=== PATIENT | female | born 1965 | race Caucasian/White ===

== ENCOUNTER 2017-01-14 05:33 | Emergency (ER) ==
[2017-01-14 05:40] VITALS: BP 131/79; TEMP 97.6; BMI 44.9
--- NOTE | 2017-01-14 05:57 | ED.PDOC ---
General ED Provider: Dr. THOMAS ENG Chief Complaint: Palpitations Stated Complaint: Palpitation, woke me up. no chest tightness. no fever or chills. Time Seen by Physician: 05:55 Mode of Arrival: Walk-In Information Source: Patient Primary Care Provider: STANLEY SHERWOOD Nursing and Triage Documentation Reviewed and Agree: Yes Cardiovascular Complaint Exam - Palpitations Complaint/Exam Symptoms Are: Resolved Timing: Intermittent Initial Severity: Moderate Current Severity: None Character: Reports: Fast, Pounding Aggravating: Reports: None Alleviating: Reports: Rest Associated Signs and Symptoms: Denies: Lightheadedness, Dizziness, Syncope, Chest pain, Shortness of breath, Diaphoresis, Nausea, Vomiting Related Surgical History: Reports: None Cardiac Risk Factors: Reports: Hypertension, Elevated lipids Pulmonary Embolism Risk Factors: Reports: None Atrial Fibrillation Risk Factors: Reports: Hypertension, Hypothyroidism Thyroid Exam: Normal Differential Diagnoses: Medication induced, Panic Disorder Quality Indicators for AMI: EKG in 10min. Review of Systems - Review Of Systems Constitutional: Reports: No symptoms Eyes: Reports: No symptoms Ears, Nose, Mouth, Throat: Reports: Nose discharge Respiratory: Reports: No symptoms Cardiac: Reports: Palpitations GI: Reports: No symptoms : Reports: No symptoms Musculoskeletal: Reports: No symptoms Skin: Reports: No symptoms Neurological: Reports: No symptoms Endocrine: Reports: No symptoms Hematologic/Lymphatic: Reports: No symptoms All Other Systems: Reviewed and Negative Past Medical History - Past Medical History Previously Healthy: No Endocrine: Reports: DM 2, Hypothyroid (Thyeoidectomy), Other (thyroid nodule) Cardiovascular: Reports: None Respiratory: Reports: None Hematological: Reports: None Gastrointestinal: Reports: GERD, Crohn's, Other ( COLITIS) Genitourinary: Reports: None Neuro/Psych: Reports: Anxiety, Depression, Bipolar Disorder Musculoskeletal: Reports: None, Back Pain Cancer: Reports: None Last Menstrual Period: hysterectomy Other Pertinent Past Medical History: COLITIS/ crohn's, HERNIA. BACK PAIN - Surgical History General Surgical History: Reports: Hysterectomy, Cholecystectomy, Orthopedic, Back Surgery (SPINAL CYST REMOVAL), Other. Denies: Hernia Repair - Family History Family History: Reports: Unknown - Social History Smoking Status: Never smoker Hx Substance Use: No Alcohol Screening: None - Immunizations Tetanus Shot up to Date: Yes Physical Exam - Physical Exam Appearance: Well-appearing, No pain distress, Well-nourished, Obese Eyes: IBRAHIMA, EOMI, Conjunctiva clear ENT: Ears normal, Nose normal, Oropharynx normal Respiratory: Airway patent, Breath sounds clear, Breath sounds equal, Respirations nonlabored Cardiovascular: RRR, Pulses normal, No rub, No murmur GI/: Soft, Nontender, No masses, Bowel sounds normal, No Organomegaly Musculoskeletal: Normal strength, ROM intact, No edema, No calf tenderness Skin: Warm, Dry, Normal color Neurological: Sensation intact, Motor intact, Reflexes intact, Cranial nerves intact, Alert, Oriented Psychiatric: Affect appropriate, Mood appropriate Critical Care Note - Critical Care Note Total Time (mins): 0 Course - Course Orders, Labs, Meds: Orders Category Date Time Status EKG-(ED ONLY) Stat CARDIO 01/14/17 05:54 Ordered CBC W/ AUTO DIFF Stat LAB 01/14/17 05:54 Ordered COMPREHENSIVE METABOLIC PANEL Stat LAB 01/14/17 05:54 Ordered CREATINE KINASE Stat LAB 01/14/17 05:54 Ordered TROPONIN I Stat LAB 01/14/17 05:54 Ordered TSH [THYROID STIMULATING HORMONE] Stat LAB 01/14/17 05:54 Ordered Vital Signs: Temp Pulse Resp BP Pulse Ox 01/14/17 05:34 97.6 F 69 24 131/79 96 DAVID Risk Score DAVID Risk Score: Risk Score Odds of by 30D 0 0.1 (0.1-0.2) 1 0.3 (0.2-0.3) 2 0.4 (0.3-0.5) 3 0.7 (0.6-0.9) 4 1.2 (1.0-1.5) 5 2.2 (1.9-2.6) 6 3.0 (2.5-3.6) 7 4.8 (3.8-6.1) Departure - Departure Time of Disposition: 06:40 Disposition: HOME SELF-CARE Discharge Problem: Palpitations Instructions: Palpitations (ED) Condition: Stable Pt referred to PMD for follow-up: Yes Additional Instructions: Needs f/u with [facility] FOR FURTHER EVALUATION AND [facility]OLTER Allergies/Adverse Reactions: Allergies levofloxacin [From Levaquin] Adverse Reaction (Verified 12/25/15 15:36) Penicillins Adverse Reaction (Verified 12/25/15 15:36) Home Medications: Ambulatory Orders Potassium Chloride 20 meq PO DIRECTED PRN 08/07/13 Omeprazole [Prilosec] 20 mg PO QDAC 11/20/15 Zolpidem Tartrate [Ambien] 5 mg PO bedtinme 04/19/16 Hydrocodone/Acetaminophen [Arnett 7.5-325 Tablet] 1 each PO TID 05/17/16 Orphenadrine Citrate [Norflex] 100 mg PO Q12H PRN #20 tablet.er 07/17/16 Disposition Discussed With: Patient
[2017-01-14 06:12] LABS: BASOPHILS % (AUTO) 0.5 % (0.0-3.0); EOSINOPHILS # (AUTO) 0.2 K/ul (0.0-0.7); EOSINOPHILS % (AUTO) 2.6 % (0.0-7.0); HEMATOCRIT 38.2 % (37.0-47.0); HEMOGLOBIN 12.6 g/dl (12.0-16.0); IMMATURE GRANULOCYTE % (AUTO) 0.3 % (0.0-5.0); LYMPHOCYTES # (AUTO) 1.1 K/uL (0.60-3.4); LYMPHOCYTES % (AUTO) 15.3 (10.0-50.0); MEAN CORPUSCULAR HEMOGLOBIN 26.8 pg (27.0-31.0); MEAN CORPUSCULAR VOLUME 81.3 fl (81.0-99.0); MONOCYTES # (AUTO) 0.8 K/uL (0.4-2.0); MONOCYTES % (AUTO) 10.5 (0-10); NEUTROPHILS # (AUTO) 5.2 K/ul (2.0-6.9); NEUTROPHILS % (AUTO) 70.8; PLATELET COUNT 193 10^3/uL (140-440); WHITE BLOOD COUNT 7.34 K/ul (4.6-10.2)
[2017-01-14 07:03] LABS: ALANINE AMINOTRANSFERASE 24 U/L (12-78); ALBUMIN 3.5 g/dL (3.4-5.0); ALKALINE PHOSPHATASE 80 U/L (42-98); ANION GAP 13.7; ASPARTATE AMINO TRANSFERASE 22 U/L (15-37); BILIRUBIN,TOTAL 0.59 mg/dL (0.00-1.20); BLOOD UREA NITROGEN 10 mg/dL (7-18); CALCIUM 8.5 mg/dL (8.2-10.2); CARBON DIOXIDE 25 mmol/L (21-32); CHLORIDE 106 mmol/L (98-107); CREATINE KINASE 278 U/L; GLUCOSE 110 mg/dL (70-110); POTASSIUM 3.7 mmol/L (3.5-5.10); SODIUM 141 mmol/L (136-145)
[2017-01-14 07:11] LABS: CREATINE KINASE MB 6.2 ng/ml (0.0-3.6)
== END 2017-01-14 07:55 | disposition home or self-care (01) ==
LOC: ED 05:33
DX: R00.2 Palpitations (principal); I10 Essential (primary) hypertension; E78.5 Hyperlipidemia, unspecified; E03.9 Hypothyroidism, unspecified; E11.9 Type 2 diabetes mellitus without complications; Z79.899 Other long term (current) drug therapy
CPT/HCPCS: 36415; 80053; 82550; 82553; 84439; 84443; 84484; 85025; 93005; 93010; 99283

== ENCOUNTER 2017-02-20 11:53 | Outpatient (CLI) | payer OTHER | END 2017-02-20 11:54 | disposition home or self-care (01) | LOC: LAB 11:53 | PROVIDERS: ATTEND Nurse Practitioner Family | DX: L05.01 Pilonidal cyst with abscess (principal) | CPT/HCPCS: 87070; 87186 ==

== ENCOUNTER 2017-07-01 14:17 | Outpatient (CLI) ==
[2017-07-01 14:44] LABS: BASOPHILS # (AUTO) 0.1 K/uL (0-0.2); BASOPHILS % (AUTO) 0.7 % (0.0-3.0); EOSINOPHILS # (AUTO) 0.3 K/ul (0.0-0.7); EOSINOPHILS % (AUTO) 3.3 % (0.0-7.0); HEMATOCRIT 38.5 % (37.0-47.0); HEMOGLOBIN 12.9 g/dl (12.0-16.0); IMMATURE GRANULOCYTE % (AUTO) 0.2 % (0.0-5.0); LYMPHOCYTES % (AUTO) 19.4 (10.0-50.0); MEAN CORPUSCULAR HEMOGLOBIN 27.1 pg (27.0-31.0); MEAN CORPUSCULAR HGB CONC 33.5 (31.8-35.4); MEAN CORPUSCULAR VOLUME 80.9 fl (81.0-99.0); MONOCYTES # (AUTO) 0.6 K/uL (0.4-2.0); MONOCYTES % (AUTO) 6.3 (0-10); NEUTROPHILS # (AUTO) 7.1 K/ul (2.0-6.9); NEUTROPHILS % (AUTO) 70.1; PLATELET COUNT 228 10^3/uL (140-440); RED BLOOD COUNT 4.76 10^6/ul (4.20-5.40); WHITE BLOOD COUNT 10.09 K/ul (4.6-10.2)
[2017-07-01 15:25] LABS: ALBUMIN 3.7 g/dL (3.4-5.0); ALBUMIN/GLOBULIN RATIO 0.97; ANION GAP 12.9; BILIRUBIN,TOTAL 0.53 mg/dL (0.00-1.20); BUN/CREATININE RATIO 14.89; CREATININE 0.94 mg/dL (0.60-1.30); POTASSIUM 3.9 mmol/L (3.5-5.10); TOTAL PROTEIN 7.5 g/dL (6.4-8.2)
== END 2017-07-01 14:18 | disposition home or self-care (01) ==
LOC: LAB 14:17
PROVIDERS: ATTEND Nurse Practitioner Family
DX: E11.9 Type 2 diabetes mellitus without complications (principal); E66.9 Obesity, unspecified
CPT/HCPCS: 36415; 80053; 83036; 84439; 84443; 85025; 93005; 93010

== ENCOUNTER 2017-07-21 16:29 | Outpatient (CLI) | END 2017-07-21 16:30 | disposition home or self-care (01) | LOC: LAB 16:29 | PROVIDERS: ATTEND Nurse Practitioner Family | DX: L05.91 Pilonidal cyst without abscess (principal) | CPT/HCPCS: 87070 ==

== ENCOUNTER 2017-08-13 13:14 | Outpatient (CLI) | END 2017-08-13 13:15 | disposition home or self-care (01) | LOC: LAB 13:14 | PROVIDERS: ATTEND Nurse Practitioner Family | DX: E03.9 Hypothyroidism, unspecified (principal) | CPT/HCPCS: 36415; 84439; 84443 ==

== ENCOUNTER 2017-08-28 12:16 | Outpatient (CLI) ==
[2017-08-28 13:55] VITALS: BMI 48.1
== END 2017-08-28 12:17 | disposition home or self-care (01) ==
LOC: DIETCN 12:16
PROVIDERS: ATTEND Nurse Practitioner Family
DX: E66.9 Obesity, unspecified (principal)
CPT/HCPCS: 97802

== ENCOUNTER 2017-11-21 15:17 | Outpatient (CLI) ==
--- NOTE | 2017-11-21 15:40 | DI ---
Exam: Three x-rays of the left foot. Comparison: None available. Reason for exam: Pain in left foot. FINDINGS: No acute fracture or malalignment. The joint spaces are relatively well maintained. Dege nerative changes are seen in the midfoot and phalanges. No unexplained calcific soft tissue densitie s or radiopaque retained foreign bodies. Enthesiophytes are seen in the calcaneus. Impression: 1. No obvious fracture or malalignment in the left foot. 2. Moderate degenerative disease with enthesiophyte formation and joint space narrowing.
== END 2017-11-21 15:18 | disposition home or self-care (01) ==
LOC: RAD 15:17
PROVIDERS: ATTEND Nurse Practitioner Family
DX: M79.672 Pain in left foot (principal); S90.812A Abrasion, left foot, initial encounter; E03.9 Hypothyroidism, unspecified; E66.9 Obesity, unspecified; E75.6 Lipid storage disorder, unspecified
CPT/HCPCS: 36415; 80053; 80061; 84439; 84443; 85025

== ENCOUNTER 2018-01-26 17:01 | Outpatient (CLI) | END 2018-01-26 17:02 | disposition home or self-care (01) | LOC: FCC-LAB 17:01 | PROVIDERS: ATTEND Nurse Practitioner Family | DX: E03.9 Hypothyroidism, unspecified (principal); E66.9 Obesity, unspecified; G47.30 Sleep apnea, unspecified; R06.02 Shortness of breath; E75.6 Lipid storage disorder, unspecified | CPT/HCPCS: 36415; 80053; 80061; 84439; 84443; 85025 ==

== ENCOUNTER 2018-02-20 09:19 | Outpatient (CLI) ==
--- NOTE | 2018-02-20 13:18 | CT ---
EXAM: CT of the soft tissue neck with and without contrast History: Short of breath and choking left-sided neck swelling. Comparison: CT soft tissue neck 11/12/2015 Technique: Multiplanar CT images through the soft tissue neck were obtained with and without the adm inistration of IV contrast Findings: Orbits are intact. The visualized intracranial contents demonstrate no acute findings. N o parotid inflammation and no suspicious parotid masses. Submandibular glands are not inflamed. No pathologic lymphadenopathy. No peritonsillar inflammation. Epiglottis is not thickened. Status po st thyroidectomy. No abscess. Mildly enlarged left submandibular lymph nodes slightly increased in size compared to the prior study with the largest measuring 1.2 cm. These likely correlates to the p alpable event. The visualized upper lungs are free of consolidation. No acute osseous abnormalities. No air-fluid levels are seen within the sinuses or mastoid air cells. Postsurgical changes of the cervical spine. Impression: 1. Mildly enlarged left submandibular lymph nodes slightly increased in size compared to the prior s tudy and correlate with the palpable area. These are most likely reactive or inflammatory etiology.
== END 2018-02-20 09:20 | disposition home or self-care (01) ==
LOC: RAD 09:19
PROVIDERS: ATTEND Nurse Practitioner Family
DX: R22.9 Localized swelling, mass and lump, unspecified (principal); R59.0 Localized enlarged lymph nodes

== ENCOUNTER 2018-02-23 14:58 | Outpatient (CLI) | END 2018-02-23 14:59 | disposition home or self-care (01) | LOC: CAR 14:58 | PROVIDERS: ATTEND Nurse Practitioner Family | DX: G47.30 Sleep apnea, unspecified (principal); E66.9 Obesity, unspecified ==

== ENCOUNTER 2018-06-12 11:15 | Outpatient (CLI) | END 2018-06-12 11:16 | disposition home or self-care (01) | LOC: FCC-LAB 11:15 | PROVIDERS: ATTEND Family Medicine | DX: E03.9 Hypothyroidism, unspecified (principal); E16.2 Hypoglycemia, unspecified; E11.9 Type 2 diabetes mellitus without complications; E55.9 Vitamin D deficiency, unspecified | CPT/HCPCS: 36415; 80053; 82043; 82306; 83036; 84443 ==

== ENCOUNTER 2022-01-25 22:35 | Inpatient (IN) ==
[2022-01-26] MEDS ORDERED: ZOFRAN ODT PO STA (00:08)
[2022-01-26] MEDS ORDERED: CITRATE OF MAGNESIA PO STA (00:08)
--- NOTE | 2022-01-26 01:01 | CT ---
EXAM: CT scan abdomen pelvis without contrast HISTORY: Right-sided pain COMPARISON: CT scan abdomen pelvis 11/21/2016 FINDINGS: Helically acquired axial images obtained through the abdomen pelvis without contrast utili zing 3-mm collimation. Sagittal and coronal reconstructions were imaged and reviewed.. The visualize d lung bases are clear. There has been prior cholecystectomy. Diffuse fatty infiltration is noted t hroughout the liver.. Atherosclerotic changes seen involving the aorta without aneurysm formation. T he kidneys are morphologically normal. There is a metallic foreign body seen within the third portio n of the duodenum with streak artifact. Inflammatory changes are seen about the inferior pancreatic head and uncinate process suggesting pancreatitis. There is normal appendix. There is diverticulosi s without diverticulitis.. There is a normal uterus. Bone windows reveals no evidence of lytic or bl astic lesions. IMPRESSION: Fatty liver. Prior cholecystectomy. Findings compatible pancreatitis. Diverticulosis without diverticulitis. Normal appendix All CT scans are performed using dose optimization techniques as appropriate to the performed exam an d include at least one of the following: Automated exposure control, adjustment of the mA and/or kV according t o size, and the use of iterative reconstruction technique.
[2022-01-26] MEDS ORDERED: LACTATED RINGERS 1,000 ML IV STA (01:29)
[2022-01-26] MEDS ORDERED: MORPHINE 4 MG/ML SYRINGE IVP ONE (01:29)
[2022-01-26] MEDS ORDERED: ZOFRAN 4 MG/2 ML IVP ONE (01:29)
[2022-01-26 02:01] LABS: BORDETELLA PARAPERTUSSIS (PCR) NOT DETECTED (NOT DETECT); BORDETELLA PERTUSSIS (PCR) NOT DETECTED (NOT DETECT); CHLAMYDIA PNEUMONIAE (PCR) NOT DETECTED (NOT DETECT); CORONAVIRUS 229E (PCR) NOT DETECTED (NOT DETECT); CORONAVIRUS HKU1 (PCR) NOT DETECTED (NOT DETECT); CORONAVIRUS NL63 (PCR) NOT DETECTED (NOT DETECT); CORONAVIRUS OC43 (PCR) NOT DETECTED (NOT DETECT); HUMAN METAPNEUMOVIRUS (PCR) NOT DETECTED (NOT DETECT); HUMAN RHINOVIRUS/ENTEROV (PCR) NOT DETECTED (NOT DETECT); INFLUENZA B (PCR) NOT DETECTED (NOT DETECT); MYCOPLASMA PNEUMONIAE (PCR) NOT DETECTED (NOT DETECT); PARAINFLUENZA VIRUS 1 (PCR) NOT DETECTED (NOT DETECT); PARAINFLUENZA VIRUS 2 (PCR) NOT DETECTED (NOT DETECT); PARAINFLUENZA VIRUS 3 (PCR) NOT DETECTED (NOT DETECT); PARAINFLUENZA VIRUS 4 (PCR) NOT DETECTED (NOT DETECT); RESPIRATORY SYNCYTIAL V (PCR) NOT DETECTED (NOT DETECT); SARS_COV_2 (PCR) NOT DETECTED (NOT DETECT)
[2022-01-26 02:54] LABS: ADENOVIRUS (PCR) NOT DETECTED (NOT DETECT)
[2022-01-26] MEDS ORDERED: DEXTROSE 50%-WATER ABBOJECT IVP PRN (03:22)
[2022-01-26] MEDS ORDERED: ZOFRAN 4 MG/2 ML IVP PRN (03:22)
[2022-01-26] MEDS ORDERED: MORPHINE 4 MG/ML SYRINGE IVP PRN ×2 (03:22→07:45)
--- NOTE | 2022-01-26 03:33 | ED.PDOC ---
General ED Provider: Dr. BRY PICKENS Chief Complaint: Abdominal Pain Stated Complaint: 2 day hx of upper abdominal pain with some nausea. Saw Dr. Praful ESPARZA and had some labs and a KUB earlier today. Pain became worse and came to ED. Prior cholecystectomy, no hx of PUD or pancreatitis. ? Hx of Crohn's. Type 2 DM on insulin, BS OK. Time Seen by Provider: 01/25/22 23:30 Mode of Arrival: Walk-In Information Source: Patient Exam Limitations: No limitations Primary Care Provider: PEYTON ARNOLD MD Nursing and Triage Documentation Reviewed and Agree: Yes Does patient meet sepsis criteria?: No System Inflammatory Response Syndrome: Not Applicable Sepsis Protocol: For patient's 13 years and over: Temp is 96.8 and below OR 101 and greater Pulse >90 BPM Resp >20/minute Acutely Altered Mental Status Are patient's symptoms suggestive of a new infection, such as: -Pneumonia -Skin, Soft Tissue -Endocarditis -UTI -Bone, Joint Infection -Implantable Device -Acute Abdominal Infection -Wound Infection -Meningitis -Blood Stream Catheter Infection -Unknown GI Complaint Exam Abdominal Pain Complaint/Exam Onset: Gradual Duration: 2 d Symptoms Are: Still present Timing: Constant Initial Severity: Moderate Current Severity: Moderate Location of Pain: Epigastric Character: Reports Dull and Aching Aggravating: Reports Food Alleviating: Reports None Associated Signs and Symptoms: Denies Diaphoresis, Fever, Cough, Chest pain, D izziness, Back pain, Constipation, Blood in stool, Dysuria, Urinary frequency, Decreased urine output, Decreased appetite, Vaginal bleeding, Vaginal discharge, Nausea, Vomiting, Diarrhea, Sore throat or Decreased activity AAA Risk Factors: Reports Hypertension Cardiac Risk Factors: Reports Hypertension Ectopic Risk Factors: Reports None Ovarian Torsion Risk Factors: Reports None Surgical Obstruction Risk Factors: Reports None Related Surgical History: Reports None Abdominal Findings: Present Other (TTP upper abdomen) Review of Systems Review Of Systems Constitutional: Reports No symptoms Eyes: Reports No symptoms Ears, Nose, Mouth, Throat: Reports No symptoms Respiratory: Reports No symptoms Cardiac: Reports No symptoms GI: Reports Abdominal pain, Poor appetite and Poor fluid intake : Reports No symptoms Musculoskeletal: Reports No symptoms Skin: Reports No symptoms Neurological: Reports No symptoms Endocrine: Reports No symptoms Hematologic/Lymphatic: Reports No symptoms All Other Systems: Reviewed and Negative [facility] Medical History Anxiety Chronic arthritis Crohns disease Depression Gastroesophageal reflux disease Hx of degenerative disc disease Hypertension Kidney problem Non-insulin dependent type 2 diabetes mellitus Paranoia Schizo-affective schizophrenia Thyroid dysfunction Family History Mother Cardiac disease Other Schizophrenia Social History Smoking and tobacco status: Never smoker Alcohol intake: never Substance use type: does not use Special smitha needs: No Agree to transfusion: Yes Adopted: No Caregiver/support person: No Foster care: No Household members: caregiver Housing: other Marital status: S SINGLE Lives independently: No Daycare: no daycare Number of children: 1 Number of grandchildren: 0 Highest education level completed: high school graduate Financial difficulty paying for basics: not very hard service: No Current occupational status: disabled Current occupational exposures/hazards: No Pets and animals: No Leisure activites: games and reading History of recent travel: No Sexually active: No Do you think of yourself as: straight/heterosexual Current gender identity: female Seatbelt use: always Helmet use: No Drives intoxicated or rides with intoxicated city bus driver: No Water heater temperature set < 120 degrees: Yes Working smoke detector in home: Yes Fire extinguisher in home: Yes Carbon monoxide detector in home: No Firearms in home: No Surgical History Back surgery Cystectomy History of oophorectomy Status post cholecystectomy Status post hernia repair Status post hysterectomy Status post thyroidectomy (12/08/15) Female Reproductive History Menstrual Hx Hysterectomy: Yes Hx Tubal Ligation: No Physical Exam Physical Exam Appearance: Reports Ill-appearing and Obese Ill-appearing: Moderate Pain Distress: Moderate Eyes: Reports IBRAHIMA ENT: Reports Oropharynx normal Neck: Supple Respiratory: Reports Airway patent and Breath sounds clear Cardiovascular: Reports RRR and Pulses normal GI/: Reports Soft and Nontender Musculoskeletal: Reports Normal strength and ROM intact Skin: Reports Warm and Dry Neurological: Reports Sensation intact, Motor intact and Alert Psychiatric: Reports Affect appropriate and Mood appropriate Interpretation Radiology Interpretation Radiology Interpretation By: Radiologist Radiology Results: Positive Exam Interpreted: CT Scan Xray Comments: pancreatitis Critical Care Note Critical Care Note Total Critical Care Time (mins): 0 Course Course Hematology/Chemistry: 01/26/22 04:55 01/26/22 04:55 Orders, Labs, Meds: Lab Review 01/26/22 01:59 Adenovirus (PCR) Not detected B. pertussis DNA (PCR) Not detected B.parapertussis DNA PCR Not detected C. pneumoniae DNA (PCR) Not detected Coronavirus OC43 (PCR) Not detected Coronavirus HKU1 (PCR) Not detected Coronavirus 229E (PCR) Not detected Coronavirus NL63 (PCR) Not detected Human Metapneumovir PCR Not detected Influenza Type A (PCR) Not detected Influenza B (RT-PCR) Not detected M. pneumoniae (PCR) Not detected Parainfluenza 1 (PCR) Not detected Parainfluenza 2 (PCR) Not detected Parainfluenza 3 (PCR) Not detected Parainfluenza 4 (PCR) Not detected RSV (PCR) Not detected Entero/Rhino (PCR) Not detected SARS-CoV-2 (PCR) Not detected Orders Category Date Time Status ADMIT PATIENT INPATIENT .TO [facility] (NON-MONITORED ADMISSION 01/26/22 01:29 Active BED) Magnesium Citrate [Citrate of Magnesia] MEDS 01/26/22 00:08 Discontinued 10 oz PO ONCE STA Morphine Sulfate [Morphine 4 mg/ml Syringe] MEDS 01/26/22 01:29 Discontinued 4 mg IVP ONCE ONE Ondansetron HCl/Pf [Zofran 4 mg/2 ml] MEDS 01/26/22 01:29 Discontinued 4 mg IVP ONCE ONE Ondansetron [Zofran Odt] MEDS 01/26/22 00:08 Discontinued 4 mg PO ONCE STA Ringers Lactated Solution [Lactated Ringers] 1,000 ml MEDS 01/26/22 01:29 Active IV 125 mls/hr CT ABDOMEN/PELVIS WO CONTRAST Stat RADS 01/25/22 22:55 Completed Medications Generic Name Dose Route Start Last Admin Trade Name Freq PRN Reason Stop Dose Admin Dextrose 50 ml 01/26/22 03:22 Dextrose 50 % In Water 50 Ml Disp.Syrin IVP ONCE PRN Unconscious Hypoglycemia Protocol Duloxetine HCl 60 mg 01/26/22 09:00 Duloxetine Hcl 30 Mg Capsule.Dr PO DAILY [facility] Enoxaparin Sodium 40 mg 01/26/22 09:00 Enoxaparin Sodium 40 Mg/0.4 Ml Syr SUBCUT DAILY [facility] Gabapentin 6,000 mg 01/26/22 09:00 Gabapentin 300 Mg Capsule PO QID [facility] Gabapentin 200 mg 01/26/22 09:00 Gabapentin 100 Mg Capsule PO QID [facility] Lactated Ringer's 1,000 mls @ 125 mls/hr 01/26/22 01:29 01/26/22 01:47 Lactated Ringers IV 01/26/22 09:28 125 mls/hr .Q8H STA Administration Lactated Ringer's 1,000 mls @ 125 mls/hr 01/26/22 03:30 Lactated Ringers IV .Q8H [facility] Insulin Glargine 100 unit 01/26/22 09:00 Insulin Glargine,Hum.Rec.Anlog 100 Units/Ml SUBCUT QAM [facility] Insulin Glargine 40 unit 01/26/22 21:00 Insulin Glargine,Hum.Rec.Anlog 100 Units/Ml SUBCUT BEDTIME [facility] Insulin Human Regular 0 unit 01/26/22 05:27 01/26/22 06:09 Insulin Regular, Human 100 Unit/Ml (3ml) Vial SUBCUT 3 unit PRN PRN Administration Hyperglycemia Protocol Levothyroxine Sodium 100 mcg 01/26/22 06:30 01/26/22 05:55 Levothyroxine Sodium 100 Mcg Tablet PO 100 mcg 0630 ARAM Administration Levothyroxine Sodium 75 mcg 01/26/22 06:30 01/26/22 05:55 Levothyroxine Sodium 75 Mcg Tablet PO 75 mcg 0630 ARAM Administration Lisinopril 2.5 mg 01/26/22 09:00 Lisinopril 5 Mg Tablet PO DAILY [facility] Montelukast Sodium 10 mg 01/26/22 09:00 Montelukast Sodium 10 Mg Tablet PO DAILY [facility] Morphine Sulfate 4 mg 01/26/22 03:22 Morphine Sulfate 4 Mg/Ml Syringe IVP Q6H PRN Abdominal Pain Non-Formulary Medication 1 gm 01/26/22 09:00 Estradiol VAGINAL DAILY [facility] Ondansetron HCl 4 mg 01/26/22 03:22 01/26/22 04:36 Ondansetron Hcl/Pf 4 Mg/2 Ml Sdv IVP 4 mg Q6H PRN Administration Nausea / Vomiting Pantoprazole Sodium 40 mg 01/26/22 09:00 Pantoprazole Sodium 40 Mg Tablet.Dr PO DAILY [facility] Quetiapine Fumarate 400 mg 01/26/22 09:00 Quetiapine Fumarate 100 Mg Tablet PO DAILY [facility] Simvastatin 10 mg 01/26/22 09:00 Simvastatin 10 Mg Tablet PO DAILY [facility] Sitagliptin Phosphate 100 mg 01/26/22 09:00 Sitagliptin Phosphate 50 Mg Tablet PO DAILY [facility] Discontinued Medications Generic Name Dose Route Start Last Admin Trade Name Azeb PRN Reason Stop Dose Admin Magnesium Citrate 10 oz 01/26/22 00:08 01/26/22 00:13 Magnesium Citrate 10 Oz Tania PO 01/26/22 00:09 10 oz ONCE STA Administration Morphine Sulfate 4 mg 01/26/22 01:29 01/26/22 01:48 Morphine Sulfate 4 Mg/Ml Syringe IVP 01/26/22 01:30 4 mg ONCE ONE Administration Ondansetron HCl 4 mg 01/26/22 00:08 01/26/22 00:13 Ondansetron Hcl 4 Mg Tab.Rapdis PO 01/26/22 00:09 4 mg ONCE STA Administration Ondansetron HCl 4 mg 01/26/22 01:29 01/26/22 01:48 Ondansetron Hcl/Pf 4 Mg/2 Ml Sdv IVP 01/26/22 01:30 4 mg ONCE ONE Administration Vital Signs: Temp Pulse Resp BP Pulse Ox 01/25/22 22:36 97.7 F 101 H 20 133/72 97 Discharge Plan Discharge Patient Disposition: ADMITTED INPATIENT Discharge Problem: Pancreatitis ED Provider: BRY PICKENS Condition: Stable Physician Progress Note: [Dr. Arnold not admitting at this time. Labs are unremarkable, CT indicated pancreatitis. Admit her for pancreatitis tx, gut rest, IVF, med. ]
[2022-01-26 05:02] LABS: BASOPHILS # (AUTO) 0.1 K/uL (0-0.2); BASOPHILS % (AUTO) 0.7 % (0.0-3.0); EOSINOPHILS # (AUTO) 0.4 K/ul (0.0-0.7); EOSINOPHILS % (AUTO) 3.1 % (0.0-7.0); HEMATOCRIT 36.9 % (37.0-47.0); HEMOGLOBIN 11.9 g/dl (12.0-16.0); IMMATURE GRANULOCYTE # (AUTO) 0.1 (0.0-1.0); IMMATURE GRANULOCYTE % (AUTO) 0.6 % (0.0-5.0); LYMPHOCYTES # (AUTO) 2.5 K/uL (0.60-3.4); LYMPHOCYTES % (AUTO) 20.3 (10.0-50.0); MEAN CORPUSCULAR HEMOGLOBIN 27.5 pg (27.0-31.0); MEAN CORPUSCULAR HGB CONC 32.2 (31.8-35.4); MEAN CORPUSCULAR VOLUME 85.2 fl (81.0-99.0); MONOCYTES # (AUTO) 0.9 K/uL (0.4-2.0); MONOCYTES % (AUTO) 7.3 (0-10); NEUTROPHILS # (AUTO) 8.4 K/ul (2.0-6.9); PLATELET COUNT 246 10^3/uL (140-440); RDW COEFFICIENT OF VARIATION 13.3 % (11.6-14.8); RED BLOOD COUNT 4.33 10^6/ul (4.20-5.40)
[2022-01-26 05:14] LABS: AMYLASE 52.5 U/L (30-110); HDL CHOLESTEROL 50.9 mg/dL (35-80); TRIGLYCERIDES 96.2 mg/dL (0-150)
[2022-01-26 05:15] LABS: ALBUMIN 4.35 g/dL (3.5-5.0); ALKALINE PHOSPHATASE 132.7 U/L (38-126); ASPARTATE AMINO TRANSFERASE 40.5 U/L (14-36); BILIRUBIN,TOTAL 0.87 mg/dL (0.2-1.3); BLOOD UREA NITROGEN 8.8 mg/dL (7-17); CALCIUM 8.47 mg/dL (8.4-10.2); CARBON DIOXIDE 30.2 mmol/L (22-30.0); CHLORIDE 100.1 mmol/L (98-107); CREATININE 0.71 mg/dL (0.60-1.30); POTASSIUM 3.54 mmol/L (3.5-5.1); SODIUM 137.7 mmol/L (134.5-145); TOTAL PROTEIN 7.95 g/dL (6.3-8.2)
[2022-01-26 05:19] VITALS: BMI 55.7
[2022-01-26] MEDS ORDERED: HUMULIN R SUBCUT PRN (05:27)
[2022-01-26] MEDS: SYNTHROID PO SCH ×2 (05:55)
[2022-01-26] MEDS: ZOFRAN 4 MG/2 ML IVP PRN ×3 (08:19→20:31)
[2022-01-26] MEDS ORDERED: MORPHINE 2 MG/ML VIAL IVP PRN (08:43)
[2022-01-26] MEDS: ZOCOR PO SCH (08:48)
[2022-01-26] MEDS: JANUVIA PO SCH (08:48)
[2022-01-26] MEDS: PROTONIX PO SCH (08:48)
[2022-01-26] MEDS: SINGULAIR PO SCH (08:48)
[2022-01-26] MEDS: SEROQUEL PO SCH (08:48)
[2022-01-26] MEDS: CYMBALTA PO SCH (08:49)
[2022-01-26] MEDS: NEURONTIN PO SCH ×8 (08:49→21:27)
[2022-01-26] MEDS: LOVENOX SUBCUT SCH (08:49)
[2022-01-26] MEDS: ZESTRIL PO SCH (08:49)
[2022-01-26] MEDS: LANTUS SUBCUT SCH ×2 (08:50→21:27)
[2022-01-26] MEDS ORDERED: LANTUS SUBCUT SCH ×2 (09:00→21:00)
[2022-01-26] MEDS: NON-FORMULARY MEDICATION (Estradiol 0.01 % (0.1 mg/gram) cream) VAGINAL SCH (10:15)
--- NOTE | 2022-01-26 10:16 | PCM.PROG ---
Date Seen by Provider: 01/26/22 Time Seen by Provider: 09:00 Subjective: Patient still with moderate epigastric pain. Nausea improved. No BM or flatus. Objective: Vitals: T=97.1 F, P=82, R=18, IP=732/65, SPO2=94 Appears comfortable. Alert and oriented. HEENT: []Sclera anicteric. Neck: [] Lungs: [] Clear, BS equal. CVS: []RRR Abdomen: []Distended and firm. Mild epigastric tenderness Extremities: [] Neurological: [] Skin: [] Lab/Tests/Diagnostic Imaging: [] Plan: Increase morphine to 4mg IVP Q2 hours PRN. Continue IVF and zofran. Limit PO intake.
[2022-01-26] MEDS: LACTATED RINGERS 1,000 ML IV SCH ×3 (11:15→18:52)
[2022-01-26] MEDS: MORPHINE 2 MG/ML VIAL IVP PRN ×2 (13:52→20:30)
[2022-01-27] MEDS: LACTATED RINGERS 1,000 ML IV SCH ×3 (02:35→19:27)
[2022-01-27] MEDS: MORPHINE 2 MG/ML VIAL IVP PRN ×3 (02:41→15:25)
[2022-01-27] MEDS: ZOFRAN 4 MG/2 ML IVP PRN ×4 (02:41→23:51)
[2022-01-27 05:13] LABS: BASOPHILS # (AUTO) 0.1 K/uL (0-0.2); BASOPHILS % (AUTO) 0.6 % (0.0-3.0); EOSINOPHILS # (AUTO) 0.5 K/ul (0.0-0.7); EOSINOPHILS % (AUTO) 4.6 % (0.0-7.0); HEMATOCRIT 34.5 % (37.0-47.0); HEMOGLOBIN 10.8 g/dl (12.0-16.0); IMMATURE GRANULOCYTE # (AUTO) 0.1 (0.0-1.0); IMMATURE GRANULOCYTE % (AUTO) 0.5 % (0.0-5.0); LYMPHOCYTES # (AUTO) 1.6 K/uL (0.60-3.4); LYMPHOCYTES % (AUTO) 15.3 (10.0-50.0); MEAN CORPUSCULAR HEMOGLOBIN 27.1 pg (27.0-31.0); MEAN CORPUSCULAR HGB CONC 31.3 (31.8-35.4); MEAN CORPUSCULAR VOLUME 86.7 fl (81.0-99.0); MONOCYTES # (AUTO) 0.7 K/uL (0.4-2.0); MONOCYTES % (AUTO) 6.3 (0-10); NEUTROPHILS # (AUTO) 7.8 K/ul (2.0-6.9); NEUTROPHILS % (AUTO) 72.7 % (42.2-75.2); PLATELET COUNT 217 10^3/uL (140-440); RDW COEFFICIENT OF VARIATION 13.2 % (11.6-14.8); RED BLOOD COUNT 3.98 10^6/ul (4.20-5.40); WHITE BLOOD COUNT 10.71 K/ul (4.6-10.2)
[2022-01-27 05:27] LABS: ALBUMIN 3.81 g/dL (3.5-5.0); ALKALINE PHOSPHATASE 118.5 U/L (38-126); ASPARTATE AMINO TRANSFERASE 36.5 U/L (14-36); BILIRUBIN,TOTAL 0.69 mg/dL (0.2-1.3); BLOOD UREA NITROGEN 8.2 mg/dL (7-17); CALCIUM 7.89 mg/dL (8.4-10.2); CARBON DIOXIDE 33.1 mmol/L (22-30.0); CHLORIDE 100.4 mmol/L (98-107); CREATININE 0.72 mg/dL (0.60-1.30); GLUCOSE 150.6 mg/dL (74-106); POTASSIUM 3.54 mmol/L (3.5-5.1); SODIUM 137.1 mmol/L (134.5-145); TOTAL PROTEIN 7.06 g/dL (6.3-8.2)
[2022-01-27] MEDS: SYNTHROID PO SCH ×2 (05:38)
[2022-01-27] MEDS: JANUVIA PO SCH (09:01)
[2022-01-27] MEDS: SEROQUEL PO SCH (09:01)
[2022-01-27] MEDS: SINGULAIR PO SCH (09:02)
[2022-01-27] MEDS: PROTONIX PO SCH (09:02)
[2022-01-27] MEDS: NEURONTIN PO SCH ×8 (09:02→20:46)
[2022-01-27] MEDS: ZOCOR PO SCH (09:03)
[2022-01-27] MEDS: CYMBALTA PO SCH (09:03)
[2022-01-27] MEDS: ZESTRIL PO SCH (09:03)
[2022-01-27] MEDS: NON-FORMULARY MEDICATION (Estradiol 0.01 % (0.1 mg/gram) cream) VAGINAL SCH (09:04)
[2022-01-27] MEDS: LOVENOX SUBCUT SCH (09:04)
[2022-01-27] MEDS: LANTUS SUBCUT SCH ×2 (09:07→20:47)
[2022-01-27] MEDS ORDERED: TYLENOL PO ONE (09:11)
[2022-01-27] MEDS ORDERED: TYLENOL PO PRN (17:46)
[2022-01-27] MEDS: TORADOL IVP SCH ×2 (18:38→20:47)
[2022-01-27] MEDS ORDERED: NYSTATIN CREAM TP SCH (19:00)
--- NOTE | 2022-01-27 19:47 | DI ---
Examination: Abdominal series including supine and upright abdominal radiographs. HISTORY: Distension. COMPARISON: 01/25/2022. FINDINGS: Cardiomediastinal silhouette appears enlarged. The lung bases appear clear. No pleural f luid. No free air under the diaphragm on upright abdominal radiograph. Cholecystectomy clips are pr esent. Degenerative changes in the spine. Mildly dilated small bowel loops are suspected on one xuan ge but not visualized on others. There is air noted distally within the colon. Radiopacity noted wi thin the left mid abdomen on previous examination and may be within the right lower quadrant on today 's exam. No abnormal calcifications overlying the renal shadows. IMPRESSION: Mild gaseous distension of small bowel and colon including mildly dilated loops of small bowel on one image only. The findings are nonspecific. Ileus could appear similar. Consider follo w-up to ensure stability or resolution. No abnormal abdominal calcifications to suspect nephrolithiasis. No free air. Cholecystectomy. 3 mm radiopacity noted in the left mid abdomen on prior examination now may be within the right lower quadrant on today's exam. May represent ingested foreign body. Enlargement cardiomediastinal silhouette.
[2022-01-27] MEDS: COLACE PO SCH (20:50)
[2022-01-28] MEDS: LACTATED RINGERS 1,000 ML IV SCH (03:35)
[2022-01-28] MEDS ORDERED: NYSTATIN CREAM TP PRN (04:19)
[2022-01-28] MEDS: TORADOL IVP SCH (04:48)
[2022-01-28 04:59] VITALS: BP 127/68; TEMP 97.2
[2022-01-28] MEDS: SYNTHROID PO SCH ×2 (05:34)
[2022-01-28] MEDS: COLACE PO SCH (08:37)
[2022-01-28] MEDS: NEURONTIN PO SCH ×2 (08:38)
[2022-01-28] MEDS: JANUVIA PO SCH (08:39)
[2022-01-28] MEDS: ZOCOR PO SCH (08:39)
[2022-01-28] MEDS: PROTONIX PO SCH (08:39)
[2022-01-28] MEDS: ZESTRIL PO SCH (08:40)
[2022-01-28] MEDS: CYMBALTA PO SCH (08:40)
[2022-01-28] MEDS: SINGULAIR PO SCH (08:40)
[2022-01-28] MEDS: SEROQUEL PO SCH (08:41)
[2022-01-28] MEDS: LANTUS SUBCUT SCH (08:44)
[2022-01-28] MEDS: LOVENOX SUBCUT SCH (08:45)
[2022-01-28] MEDS: NON-FORMULARY MEDICATION (Estradiol 0.01 % (0.1 mg/gram) cream) VAGINAL SCH (08:58)
--- NOTE | 2022-01-28 09:24 | PCM.PROG ---
Date Seen by Provider: 01/28/22 Time Seen by Provider: 09:21 Subjective: Feeling much better, though still has some pain. Tolerating full liquids. Objective: Vitals: T=97.2 F, P=76, R=20, VA=845/68, SPO2=95 Appears well and comfortable. Good spirits. HEENT: [] Neck: [] Lungs: [] CVS: [] Abdomen: []Abdomen soft and nontender. Extremities: [] Neurological: [] Skin: [] Lab/Tests/Diagnostic Imaging: [] (1) Pancreatitis: Status: Acute Code(s): K85.90 - Acute pancreatitis without necrosis or infection, unspecified SNOMED Code(s): 28730305 Assessment: Pancreatitis resolving. Plan: Will discharge to home.
--- NOTE | 2022-01-28 09:36 | PCM.DC ---
Final Diagnosis: acute pancreatitis Physical Exam Appearance: Well-appearing, No pain distress and Obese Ill-appearing: None Pain Distress: None Eyes: IBRAHIMA, EOMI and Other (sclera anicteric) ENT: Nose normal and Oropharynx normal Neck: Supple Respiratory: Breath sounds clear and Breath sounds equal Cardiovascular: RRR, No rub and No murmur GI/: Soft, Nontender, No masses and Bowel sounds normal Musculoskeletal: Normal strength and ROM intact Skin: Warm and Dry Neurological: Sensation intact, Motor intact, Cranial nerves intact, Alert and Oriented Psychiatric: Affect appropriate and Mood appropriate (1) Pancreatitis: Status: Acute Code(s): K85.90 - Acute pancreatitis without necrosis or infection, unspecified SNOMED Code(s): 57938287 Reason for Hospitalization: acute pancreatitis Prognosis/Condition at Discharge: Stable;improved. Medications at Discharge: Ambulatory Orders Medication Instructions Recorded simvastatin 10 mg tablet 10 mg PO DAILY 90 Days #90 tab-cap 09/16/18 fluticasone furoate 100 1 inh IH QDAY 01/07/20 mcg-vilanterol 25 mcg/dose inhalation powder (Breo Ellipta) hydrocodone 7.5 mg-acetaminophen 1 tab PO Q8H PRN 01/07/20 325 mg tablet ([place]) duloxetine 60 mg capsule,delayed 60 mg PO QDAY #90 cap 01/03/21 release (Cymbalta) nystatin 100,000 unit/gram topical 1,500,000 unit TOPICAL QID PRN 10 03/12/21 cream Days #15 g blood sugar diagnostic (OneTouch #300 ea 03/13/21 Ultra Blue Test Strip) blood-glucose meter (OneTouch #1 ea 03/13/21 Ultra2 Meter) albuterol sulfate 90 mcg/actuation 2 puff INHALATION 3-4XD PRN #18 g 08/16/21 aerosol inhaler (ProAir HFA) lancets 33 gauge (OneTouch Delica #100 ea 10/03/21 Lancets) lisinopril 2.5 mg tablet 2.5 mg PO QDAY #90 tab 10/04/21 pantoprazole 40 mg tablet,delayed 40 mg PO QDAY #90 tab 10/04/21 release (Protonix) pen needle, diabetic 32 gauge x #100 ea 11/01/21" (BD Ultra-Fine Griselda Pen Needle) sitagliptin 100 mg tablet (Januvia) 100 mg PO QDAY #90 tab 12/03/21 quetiapine 400 mg tablet (Seroquel) 400 mg PO QDAY #90 tab 12/04/21 insulin lispro 100 unit/mL 15 unit (0.15 mL) SUBCUT TID #15 ml 12/21/21 subcutaneous pen (Humalog KwikPen (U-100) Insulin) gabapentin 800 mg tablet 800 mg PO QID tab 12/31/21 levothyroxine 175 mcg tablet 175 mcg PO DAILY 90 Days #90 01/02/22 tab-cap insulin glargine 100 unit/mL (3 140 unit (1.4 mL) SUBCUT 01/16/22 mL) subcutaneous pen (Lantus DIRECTED #45 ml Solostar U-100 Insulin) montelukast 10 mg tablet 10 mg PO QDAY #30 tab 01/16/22 (Singulair) estradiol 1 g VAGINAL DAILY 01/25/22 mupirocin 2 % topical ointment 1 applic TOPICAL TID PRN 01/25/22 Education Provided to Patient and Family: Low fat diet. Follow-ups: Follow up with Dr Basilio within one week. Call in the interim if the pain returns. Discharge Disposition: Home Hospital Course: Patient was admitted with acute pancreatitis. She was made NPO and placed on IVF and IV morphine. Her abdominal pain improved and she was eventually started on a clear liquid diet that was advanced to a full liquid diet prior to discharge. She tolerated her diet and was discharged to home on a low fat diet. Plan: Patient to follow up with Dr Basilio within one week. Continue prehospitalization medications.
== END 2022-01-28 10:49 | disposition home or self-care (01) | DRG 439 ==
LOC: ED 22:35 → MEDSURG A 01-26 03:00
PROVIDERS: ADMIT Emergency Medicine; ATTEND Surgery
DX: F33.9 Major depressive disorder, recurrent, unspecified; E11.9 Type 2 diabetes mellitus without complications; K85.90 Acute pancreatitis without necrosis or infection, unspecified; F25.9 Schizoaffective disorder, unspecified; K21.9 Gastro-esophageal reflux disease without esophagitis; F41.9 Anxiety disorder, unspecified; Z20.822 Contact with and (suspected) exposure to COVID-19; I10 Essential (primary) hypertension; K50.90 Crohn's disease, unspecified, without complications; E03.9 Hypothyroidism, unspecified

== ENCOUNTER 2023-08-07 16:10 | Observation (INO) ==
[2023-08-07] MEDS ORDERED: GLYDO NAS ONE (17:07)
[2023-08-07] MEDS ORDERED: ATIVAN IVP STA (17:07)
[2023-08-07] MEDS ORDERED: AFRIN NASAL SPRAY NAS STA (17:07)
[2023-08-07] MEDS ORDERED: REGLAN IVP STA (17:10)
[2023-08-07] MEDS ORDERED: BENADRYL 25 MG in SODIUM CHLORIDE 100ML 100 ML IV STA (17:10)
[2023-08-07] MEDS ORDERED: BENADRYL ONE (17:51)
[2023-08-07] MEDS ORDERED: BENADRYL IVP STA ×2 (17:52→17:54)
--- NOTE | 2023-08-07 19:20 | DI ---
EXAM: SINGLE VIEW OF THE CHEST. History: Nasogastric tube placement. It findings: Heart size is normal. No consolidation. No pleural fluid and no pneumothorax. Nasoga stric tube tip is projecting over the mid body of the stomach. No acute osseous abnormalities. Post surgical changes of the cervical spine. Impression: No acute cardiopulmonary process. Nasogastric tube placement
[2023-08-07 21:00] LABS: BASOPHILS # (AUTO) 0.1 K/uL (0-0.2); BASOPHILS % (AUTO) 0.7 % (0.0-3.0); EOSINOPHILS # (AUTO) 0.6 K/ul (0.0-0.7); EOSINOPHILS % (AUTO) 4.2 % (0.0-7.0); HEMOGLOBIN 12.6 g/dl (12.0-16.0); IMMATURE GRANULOCYTE # (AUTO) 0.1 (0.0-1.0); IMMATURE GRANULOCYTE % (AUTO) 0.4 % (0.0-5.0); LYMPHOCYTES % (AUTO) 15.2 (10.0-50.0); MEAN CORPUSCULAR HEMOGLOBIN 24.8 pg (27.0-31.0); MEAN CORPUSCULAR HGB CONC 29.3 (31.8-35.4); MEAN CORPUSCULAR VOLUME 84.6 fl (81.0-99.0); MONOCYTES # (AUTO) 0.9 K/uL (0.4-2.0); MONOCYTES % (AUTO) 6.7 (0-10); NEUTROPHILS # (AUTO) 9.5 K/ul (2.0-6.9); NEUTROPHILS % (AUTO) 72.8 % (42.2-75.2); PLATELET COUNT 290 10^3/uL (140-440); RDW COEFFICIENT OF VARIATION 15.6 % (11.6-14.8); RED BLOOD COUNT 5.08 10^6/ul (4.20-5.40); WHITE BLOOD COUNT 13.08 K/ul (4.6-10.2)
[2023-08-07 21:12] LABS: ALANINE AMINOTRANSFERASE 38.5 U/L (0-35); ALBUMIN 4.3 g/dL (3.5-5.0); ALKALINE PHOSPHATASE 111.7 U/L (38-126); ASPARTATE AMINO TRANSFERASE 40.9 U/L (14-36); BILIRUBIN,TOTAL 0.55 mg/dL (0.2-1.3); BLOOD UREA NITROGEN 8.5 mg/dL (7-17); CALCIUM 8.98 mg/dL (8.4-10.2); CARBON DIOXIDE 29.7 mmol/L (22-30.0); CHLORIDE 99.6 mmol/L (98-107); CREATININE 0.83 mg/dL (0.60-1.30); GLUCOSE 145.7 mg/dL (74-106); LIPASE 174.1 U/L (23-300); MAGNESIUM 2.15 mg/dL (1.6-2.3); POTASSIUM 3.97 mmol/L (3.5-5.1); SODIUM 139.4 mmol/L (134.5-145); TOTAL PROTEIN 8.3 g/dL (6.3-8.2)
--- NOTE | 2023-08-07 21:45 | CT ---
EXAM: CT OF THE ABDOMEN AND PELVIS WITHOUT CONTRAST. TECHNIQUE: CT of the abdomen and pelvis was performed without the use of contrast. Multiplanar refo rmats were performed. HISTORY: Abdominal distension. Nausea. Gastroparesis COMPARISON: 01/25/2022 FINDINGS: Evaluation of solid organs and blood vessels is suboptimal without the benefit of contrast. Imaged lower thorax: Scar left lung base. Stomach: There is a nasogastric tube. The tip is in the mid gastric region Liver: No acute findings Gallbladder/Bile Ducts: No biliary dilation. The gallbladder is absent. Spleen: Unremarkable. Pancreas: Normal. Adrenals: No discrete lesions. Kidneys/Ureters: No nephrolithiasis.No obstruction.No renal masses. No intraureteral calculi. Bowel/mesentery/peritoneum: No bowel obstruction. Normal appendix. Diverticulosis. No evidence of di verticulitis.. Abominal Wall: No defects. Retroperitoneum/vessels: No aortic aneurysm. No adenopathy. Pelvis: Bladder is moderately distended. Wall contour is normal. Uterus is normal.No inguinal herni a. Bones: Degenerative changes are present within the hips. Degenerative change sacroiliac joints. Deg enerative disc disease with disc osteophyte complex and neural foraminal stenosis L3-4 and L5-S1.No a cute fracture. IMPRESSION: 1. Diverticulosis. 2. Degenerative change spine hips and pelvis.. 3. Post cholecystectomy. All CT scans are performed using dose optimization techniques as appropriate to the performed exam an d includes at least one of the following: Automated exposure control, adjustment of the mA and/or kV according to size, and the use of iterative reconstruction technique. All CT scans are performed using dose optimization techniques as appropriate to the performed exam an d include at least one of the following: Automated exposure control, adjustment of the mA and/or kV according t o size, and the use of iterative reconstruction technique.
[2023-08-07] MEDS ORDERED: LACTATED RINGERS 1,000 ML IV STA ×2 (22:24→23:01)
[2023-08-07] MEDS ORDERED: D5%-1/2NS-KCL 20 MEQ/L IV SOL 1,000 ML IV STA (22:28)
[2023-08-07] MEDS ORDERED: HUMULIN R SUBCUT PRN ×2 (23:01→23:43)
[2023-08-07] MEDS ORDERED: ZOFRAN 4 MG/2 ML IVP PRN (23:01)
--- NOTE | 2023-08-07 23:20 | ED.PDOC ---
General ED Provider: Dr. MALLIKA FERRERA Chief Complaint: Non-specific Complaint Stated Complaint: See above Time Seen by Provider: 08/07/23 16:25 Information Source: Patient Primary Care Provider: MARTY CHE PA-C Nursing and Triage Documentation Reviewed and Agree: Yes (unless otherwise noted in my documentation.) Review of Systems Review Of Systems Constitutional: Reports Other (documented below) All Other Systems: Other (documented below) [facility] Medical History (Updated 08/07/23 @ 23:20 by MALLIKA FERRERA MD) Abdominal distention R14.0 - Abdominal distension (gaseous) (ICD-10) Abscess L02.91 - Cutaneous abscess, unspecified (ICD-10) Acute upper respiratory infection J06.9 - Acute upper respiratory infection, unspecified (ICD-10) BMI 50.0-59.9, adult Z68.43 - Body mass index [BMI] 50.0-59.9, adult (ICD-10) Change in bowel habit R19.4 - Change in bowel habit (ICD-10) Chest pain R07.9 - Chest pain, unspecified (ICD-10) COVID U07.1 - COVID-19 (ICD-10) Daytime somnolence R40.0 - Somnolence (ICD-10) Diabetes mellitus, insulin dependent (IDDM), uncontrolled Epigastric abdominal tenderness R10.816 - Epigastric abdominal tenderness (ICD-10) Fall W19.XXXA - Unspecified fall, initial encounter (ICD-10) Fatigue R53.83 - Other fatigue (ICD-10) Hypocalcemia E83.51 - Hypocalcemia (ICD-10) Kidney problem N28.9 - Disorder of kidney and ureter, unspecified (ICD-10) Lesion of skin of cheek L98.9 - Disorder of the skin and subcutaneous tissue, unspecified (ICD-10) Leukocytosis D72.829 - Elevated white blood cell count, unspecified (ICD-10) Nausea R11.0 - Nausea (ICD-10) Neck pain M54.2 - CERVICALGIA (ICD-10) Need for vaccination Z23 - Encounter for immunization (ICD-10) Needs flu shot Z23 - Encounter for immunization (ICD-10) Non-insulin dependent type 2 diabetes mellitus E11.9 - Type 2 diabetes mellitus without complications (ICD-10) Numbness and tingling R20.2 - PARESTHESIA OF SKIN (ICD-10) Pain, dental K08.89 - Other specified disorders of teeth and supporting structures (ICD- 10) Palpitations R00.2 - Palpitations (ICD-10) Pancreatitis K85.90 - Acute pancreatitis without necrosis or infection, unspecified (ICD- 10) Paranoia F22 - Delusional disorders (ICD-10) RUQ abdominal tenderness R10.811 - Right upper quadrant abdominal tenderness (ICD-10) Schizo-affective schizophrenia F25.0 - Schizoaffective disorder, bipolar type (ICD-10) Shoulder pain M25.519 - PAIN IN UNSPECIFIED SHOULDER (ICD-10) Throat pain R07.0 - Pain in throat (ICD-10) Thyroid dysfunction E07.9 - Disorder of thyroid, unspecified (ICD-10) Ulcer of abdomen wall L98.499 - Non-pressure chronic ulcer of skin of other sites with unspecified severity (ICD-10) Upper abdominal pain R10.10 - Upper abdominal pain, unspecified (ICD-10) Family History Mother Cardiac disease Schizophrenia Alcoholism BROTHER Cancer FATHER Alcoholism Social History Smoking and tobacco status: Former smoker Alcohol intake: never Substance use type: does not use Liz/cheondoism: LATTER-DAY Special lzi needs: No Agree to transfusion: Yes Adopted: No Caregiver/support person: No Foster care: No Household members: caregiver Housing: apartment Marital status: S SINGLE Lives independently: No Daycare: no daycare Number of children: 1 Number of grandchildren: 0 Highest education level completed: high school graduate Financial difficulty paying for basics: not very hard service: No Current occupational status: disabled Current occupational exposures/hazards: No Previous occupational history: worked with developmentally disabled adults Pets and animals: Yes (dog ) Leisure activites: other History of recent travel: No Sexually active: No Do you think of yourself as: straight/heterosexual Current gender identity: female Seatbelt use: always Helmet use: No Drives intoxicated or rides with intoxicated tower truck driver: No Water heater temperature set < 120 degrees: Yes Working smoke detector in home: No Fire extinguisher in home: No Carbon monoxide detector in home: No Firearms in home: No Surgical History Back surgery Cystectomy History of oophorectomy Status post cholecystectomy Z90.49 - Acquired absence of other specified parts of digestive tract (ICD- 10) Status post hernia repair Z98.890 - Other specified postprocedural states (ICD-10) Status post hysterectomy Z90.710 - Acquired absence of both cervix and uterus (ICD-10) Female Reproductive History Menstrual Hx Hysterectomy: Yes Hx Tubal Ligation: No Physical Exam Physical Exam Appearance: Reports Other (documented below if examined) Ill-appearing: Not Applicable (documented below if examined) Pain Distress: Not Applicable (documented below if examined) Eyes: Reports Other (documented below if examined) ENT: Reports Other (documented below if examined) Neck: Not Examined (documented below if examined) Respiratory: Reports Other (documented below if examined) Cardiovascular: Reports Other (documented below if examined) GI/: Reports Other (documented below if examined) Musculoskeletal: Reports Other (documented below if examined) Skin: Reports Other (documented below if examined) Neurological: Reports Other (documented below if examined) Psychiatric: Reports Other (documented below if examined) Critical Care Note Critical Care Note Total Critical Care Time (mins): 0 Course Course 08/07/23 20:56 08/07/23 20:56 Orders, Labs, Meds: Lab Review 08/07/23 20:56 WBC 13.08 H RBC 5.08 Hgb 12.6 Hct 43.0 MCV 84.6 MCH 24.8 L MCHC 29.3 L RDW Coeff of Luzma 15.6 H Plt Count 290 Immature Gran % (Auto) 0.4 Neut % (Auto) 72.8 Lymph % (Auto) 15.2 [place] % (Auto) 6.7 Eos % (Auto) 4.2 Baso % (Auto) 0.7 Neut # (Auto) 9.5 H Lymph # (Auto) 2.0 [place] # (Auto) 0.9 Eos # (Auto) 0.6 Baso # (Auto) 0.1 Immature Gran # (Auto) 0.1 Sodium 139.4 Potassium 3.97 Chloride 99.6 Carbon Dioxide 29.7 Anion Gap 14.07 BUN 8.5 Creatinine 0.83 Estimated GFR (MDRD) 71.00 BUN/Creatinine Ratio 10.24 Glucose 145.7 H Calcium 8.98 Magnesium 2.15 Total Bilirubin 0.55 AST 40.9 H ALT 38.5 H Alkaline Phosphatase 111.7 Total Protein 8.30 H Albumin 4.30 Globulin 4.00 Albumin/Globulin Ratio 1.07 Lipase 174.1 Orders Category Date Time Status ADMIT OBSERVATION [PLACE PATIENT OBSERVATION] .TO ADMISSION 08/07/23 23:03 Ordered MEDSURG (NON-MONITORED BED) CBC W/ AUTO DIFF Stat LAB 08/07/23 20:56 Completed COMPREHENSIVE METABOLIC PANEL Stat LAB 08/07/23 20:56 Received LIPASE Stat LAB 08/07/23 20:56 Received MAGNESIUM Stat LAB 08/07/23 20:56 Received Diphenhydramine Inj [Benadryl] Meds 08/07/23 17:52 Discontinued 25 mg IVP ONCE STA Diphenhydramine Inj [Benadryl] Meds 08/07/23 17:54 Discontinued 25 mg IVP ONCE STA Diphenhydramine Inj [Benadryl] Meds 08/07/23 17:51 Discontinued 50 mg .ROUTE .STK-MED ONE Diphenhydramine Inj [Benadryl] 25 mg Meds 08/07/23 17:10 Discontinued 0.9 % Sodium Chloride [Sodium Chloride 100Ml] 100 ml IV ONCE Lidocaine HCl Jelly [Glydo] Meds 08/07/23 17:07 Discontinued 5 ml SHIRIN ONCE ONE Lorazepam Inj [Ativan] Meds 08/07/23 17:07 Discontinued 1 mg IVP ONCE STA Metoclopramide HCl [Reglan] Meds 08/07/23 17:10 Discontinued 10 mg IVP ONCE STA Oxymetazoline HCl [Afrin Nasal [place]] Meds 08/07/23 17:07 Discontinued 2 spray SHIRIN ONCE STA POTASSIUM CHLORIDE/D5-0.45NACL @ 125 MLS/HR(1000ml) Meds 08/07/23 22:28 Ordered Potassium Chloride/D5-0.45NACL [D5%-1/2Ns-KCl 20 Meq/l IV Tania] 1,000 ml IV 125 mls/hr Ringers Lactated Solution [Lactated Ringers] 1,000 ml Meds 08/07/23 22:24 Active IV BOLUS CHEST, 1V AP ONLY Stat RADS 08/07/23 18:[address] ABDOMEN/PELVIS WO CONTRAST Stat RADS 08/07/23 21:11 Ordered Medications Generic Name Dose Route Start Last Admin Trade Name Freq PRN Reason Stop Dose Admin Lactated Ringer's 1,000 mls @ 1,000 mls/hr 08/07/23 22:24 08/07/23 22:33 Lactated Ringers IV 08/07/23 23:23 1,000 mls/hr BOLUS STA Administration Potassium Chloride/Dextrose/Sod Cl 1,000 mls @ 125 mls/hr 08/07/23 22:28 D5%-1/2ns-Kcl 20 Meq/L Iv Tania IV 08/08/23 06:27 .Q8H STA Discontinued Medications Generic Name Dose Route Start Last Admin Trade Name Freq PRN Reason Stop Dose Admin Diphenhydramine HCl 25 mg 08/07/23 17:52 08/07/23 17:53 Diphenhydramine Inj 50 Mg/Ml Vial IVP 08/07/23 17:53 25 mg ONCE STA Administration Diphenhydramine HCl 25 mg 08/07/23 17:54 08/07/23 17:55 Diphenhydramine Inj 50 Mg/Ml Vial IVP 08/07/23 17:55 25 mg ONCE STA Administration Diphenhydramine HCl 25 mg/ 100.5 mls @ 200 mls/hr 08/07/23 17:10 08/07/23 17:53 Sodium Chloride IV 08/07/23 17:40 Not Given ONCE STA Lidocaine HCl 5 ml 08/07/23 17:07 08/07/23 17:47 Lidocaine Jelly 11 Ml Jel.Pf.Elpidio (5ml Female/11ml Male) SHIRIN 08/07/23 17:08 5 ml ONCE ONE Administration Lorazepam 1 mg 08/07/23 17:07 08/07/23 17:47 Lorazepam Inj 2 Mg/Ml Disp.Syringe IVP 08/07/23 17:08 1 mg ONCE STA Administration Metoclopramide HCl 10 mg 08/07/23 17:10 08/07/23 17:47 Metoclopramide Hcl 10 Mg/2 Ml IVP 08/07/23 17:11 10 mg ONCE STA Administration Oxymetazoline HCl 2 spray 08/07/23 17:07 08/07/23 17:46 Oxymetazoline Hcl 30 Ml Nasal [place] SHIRIN 08/07/23 17:08 2 spray ONCE STA Administration Vital Signs: Temp Pulse Resp BP Pulse Ox 08/07/23 16:31 97.8 F 98 20 123/74 98 Discharge Plan Discharge Patient Disposition: PLACED OBSERVATION Discharge Problem: Acute distention of stomach, Diabetic gastroparesis, Intractable nausea and vomiting Prescriptions: No Action (DME) blood-glucose meter [[employer] Ultra2 Meter] Kit See Rx Instructions .ROUTE .MEDSUPPLY Qty: 1 0RF Rx Instructions: qachs albuterol sulfate [ProAir HFA] 90 mcg/actuation HFA aerosol inhaler 2 puff inhalation 3-4XD PRN (Reason: Shortness Of Breath Or Wheezing) Qty: 18 12RF (DME) lancets [OneTouch Delica Lancets] 33 gauge misc See Rx Instructions .ROUTE .MEDSUPPLY Qty: 100 1RF Rx Instructions: As directed QACHS (DME) blood sugar diagnostic Strip See Rx Instructions .ROUTE .MEDSUPPLY Qty: 300 5RF Rx Instructions: qachs estradiol 0.01 % (0.1 mg/gram) cream 1 g VAGINAL DAILY Qty: 42.5 1RF insulin glargine [Lantus Solostar U-100 Insulin] 100 unit/mL (3 mL) insulin pen See Rx Instructions .ROUTE .COMPLEX Qty: 45 0RF Dose Instruction: INJECT 145 UNITS UNDER THE SKIN EVERY MORNING AND 55 UNITS EVERY EVENING Rx Instructions: INJECT 145 UNITS UNDER THE SKIN EVERY MORNING AND 55 UNITS EVERY EVENING (DME) pen needle, diabetic [TRUEplus Pen Needle] 32 gauge x 5/32" needle See Rx Instructions .ROUTE .COMPLEX Qty: 100 0RF Dose Instruction: USE THREE TIMES DAILY Rx Instructions: USE THREE TIMES DAILY Jardiance 10 mg tablet See Rx Instructions .ROUTE .COMPLEX Qty: 30 0RF Dose Instruction: TAKE 1 TABLET BY MOUTH EVERY MORNING Rx Instructions: TAKE 1 TABLET BY MOUTH EVERY MORNING levothyroxine 125 mcg tablet See Rx Instructions .ROUTE .COMPLEX Qty: 180 0RF Dose Instruction: TAKE 2 TABLETS BY MOUTH DAILY Rx Instructions: TAKE 2 TABLETS BY MOUTH DAILY montelukast 10 mg tablet See Rx Instructions .ROUTE .COMPLEX Qty: 30 5RF Dose Instruction: TAKE 1 TABLET BY MOUTH EVERY DAY Rx Instructions: TAKE 1 TABLET BY MOUTH EVERY DAY Januvia 100 mg tablet 100 mg PO QDAY Qty: 90 1RF lisinopril 2.5 mg tablet 2.5 mg PO QDAY Qty: 90 1RF pantoprazole [Protonix] 40 mg tablet,delayed release (DR/EC) 40 mg PO QDAY Qty: 90 1RF nystatin 100,000 unit/gram cream 1,500,000 unit topical QID PRN 10 Days Qty: 15 5RF Rx Instructions: Apply to diaper area 4x daily until gone then another 48 hours. hydrocodone-acetaminophen [[place]] 7.5-325 mg tablet 1 tab PO Q8H PRN (Reason: Pain) gabapentin 800 mg tablet 900 mg PO QID (DME) pen needle, diabetic [BD Ultra-Fine Griselda Pen Needle] 32 gauge x 5/32" needle See Rx Instructions .ROUTE .MEDSUPPLY Qty: 100 3RF Rx Instructions: TID with meals as well as qam and qpm (DME) pen needle, diabetic [BD Ultra-Fine Griselda Pen Needle] 32 gauge x 5/32" needle See Rx Instructions .ROUTE .MEDSUPPLY Qty: 100 3RF Rx Instructions: TID with meals and qam and qpm atorvastatin 40 mg tablet 40 mg PO QDAY Qty: 90 1RF mupirocin 2 % ointment 1 applic topical TID Qty: 22 0RF triamcinolone acetonide 0.1 % cream 1 applic topical TID Qty: 80 0RF sertraline 100 mg tablet 100 mg PO QDAY Qty: 30 1RF insulin lispro [Humalog KwikPen Insulin] 100 unit/mL insulin pen 16 unit subcut TID Qty: 15 3RF Rx Instructions: 16 units with meals. SLIDING SCALE with correction of up to 4 additional units TID. Max dose 60units albuterol sulfate 2.5 mg /3 mL (0.083 %) solution for nebulization 2.5 mg inhalation Q4-6H PRN (Reason: shortness of breath or wheezing) Qty: 90 0RF memantine 10 mg tablet 10 mg PO BID Qty: 60 1RF quetiapine [Seroquel XR] 300 mg tablet extended release 24 hr 600 mg PO QHS Qty: 60 1RF triamcinolone acetonide 0.1 % cream 1 applic topical QDAY Qty: 30 0RF Did you review [place] [employer]INC[employer]AL for ALL controlled substances?: Not Applicable ED Provider: MALLIKA FERRERA Physician Progress Note: Disclaimer: This note was dictated by speech recognition technology. Minor errors in physician general internal medicine may be present. Please call and notify me immediately for clarification or corrections. CC: Nausea HPI: This unfortunate patient with his severe gastroparesis that has required multiple admissions and NG tube insertion to relieve abdominal distention in the past. For the last 2 weeks she has been having nausea and dry heaves with progr essively worsening abdominal distention. She saw her primary care provider today who called me on the phone to request that we see her in the emergency department and assess for NG placement. The primary care provider found her to have a distended tympanic abdomen. Upon arrival the patient was still feeling nauseous and having pain due to the distention. The problem list, allergies, current medications and pharmacy records were reviewed and updated. ROS is included above. PE: Vital signs reviewed as well as all nursing documentation. General: Awake, alert, no acute distress but appears very uncomfortable, not toxic appearing, appears dry, severely morbidly obese Overall, the patient is atraumatic, has no deformities, has no focal deficits, has no inappropriate behavior. Respiratory: No distress Cardiac: no edema or JVD, RRR Abdomen: Tense, severely distended, tympanic, moderate generalized tenderness, no rebound MDM: All results and reports for tests that were done in the emergency department have been reviewed and considered in the planning and disposition process. DD: Gastroparesis, small bowel obstruction, ileus, gastritis, pancreatitis, colitis with colonic distention Plan: NG tube placement, metoclopramide, comfort medications to facilitate NG tube insertion if the nurses failed. Eventually the patient was given lidocaine gel, oxymetazoline spray, Ativan, Benadryl in preparation for my attempt to place the NG tube. Please see procedure note below. An x-ray was ordered to confirm placement and it was in the right place. There was not much drainage and there were several adjustments of the position of the NG tube but to no avail. CBC, CMP and CT abdomen pelvis were ordered. Interpretation of tests: CT abdomen and pelvis without contrast was independently reviewed and interpreted and showed severely distended stomach with NG tube extending about 20 cm below the esophagus and the stomach, otherwise no acute findings. Labs were unremarkable except for leukocytosis. Further action: The patient does not have electrolyte derangement and her leukocytosis is most probably secondary to stress. She is however progressively worsening and without decompression her symptoms will persist. She will need multiple attempts at irrigation of the NG tube to soften the gastric contents and cont inue the low intermittent suction while having bowel rest and giving the patient IV fluids and monitoring her electrolytes. Therefore, I talked with the hospitalist on-call who discussed the case with me and then took time to review the chart and then called me and accepted the admission. Procedure: Time spent: 25 minutes NG tube placement Indication: Gastroparesis with severe gastric distention and intractable nausea Tube size: 14 [place] Preparation: Verbal consent obtained, patient verified, medications for comfort as discussed above Technique: The patient was awake in the sitting upright position and a 14 [place] tube was lubricated appropriately and advanced without any difficulty to 70 cm. The measurements to anticipate the length of the tube was done by the RN. After the CT scan, I did the measurements and found that the tube should be at 50 cm. The tube was pulled back about 17 cm. It was connected to low intermittent suction.
[2023-08-07 23:35] LABS: AMYLASE 48.1 U/L (30-110); LIPASE 135.6 U/L (23-300)
[2023-08-08 00:03] LABS: SARS COV-2 RNA RAPID NAAT NEGATIVE (NEGATIVE)
[2023-08-08 00:41] VITALS: BMI 55.3
[2023-08-08] MEDS ORDERED: REGLAN IVP SCH ×3 (01:30→06:00)
[2023-08-08 05:59] LABS: BASOPHILS # (AUTO) 0.1 K/uL (0-0.2); BASOPHILS % (AUTO) 0.6 % (0.0-3.0); EOSINOPHILS # (AUTO) 0.5 K/ul (0.0-0.7); HEMATOCRIT 40.8 % (37.0-47.0); HEMOGLOBIN 12.3 g/dl (12.0-16.0); IMMATURE GRANULOCYTE # (AUTO) 0.1 (0.0-1.0); IMMATURE GRANULOCYTE % (AUTO) 0.6 % (0.0-5.0); LYMPHOCYTES # (AUTO) 2.3 K/uL (0.60-3.4); LYMPHOCYTES % (AUTO) 18.1 (10.0-50.0); MEAN CORPUSCULAR HEMOGLOBIN 25.1 pg (27.0-31.0); MEAN CORPUSCULAR HGB CONC 30.1 (31.8-35.4); MEAN CORPUSCULAR VOLUME 83.3 fl (81.0-99.0); MONOCYTES # (AUTO) 0.8 K/uL (0.4-2.0); MONOCYTES % (AUTO) 6.4 (0-10); NEUTROPHILS # (AUTO) 8.7 K/ul (2.0-6.9); NEUTROPHILS % (AUTO) 70.3 % (42.2-75.2); PLATELET COUNT 272 10^3/uL (140-440); RDW COEFFICIENT OF VARIATION 15.5 % (11.6-14.8); WHITE BLOOD COUNT 12.42 K/ul (4.6-10.2)
[2023-08-08 06:09] LABS: ALANINE AMINOTRANSFERASE 34.6 U/L (0-35); ALBUMIN 3.83 g/dL (3.5-5.0); ALKALINE PHOSPHATASE 103.9 U/L (38-126); ASPARTATE AMINO TRANSFERASE 32.9 U/L (14-36); BILIRUBIN,TOTAL 0.58 mg/dL (0.2-1.3); BLOOD UREA NITROGEN 7.3 mg/dL (7-17); CALCIUM 8.66 mg/dL (8.4-10.2); CARBON DIOXIDE 29.8 mmol/L (22-30.0); CHLORIDE 100.8 mmol/L (98-107); CREATININE 0.73 mg/dL (0.60-1.30); GLUCOSE 145.5 mg/dL (74-106); POTASSIUM 4.01 mmol/L (3.5-5.1); SODIUM 137.8 mmol/L (134.5-145); TOTAL PROTEIN 7.67 g/dL (6.3-8.2)
[2023-08-08 10:16] VITALS: BP 112/78; PULSE 84; RESP 20; TEMP 98.2
--- NOTE | 2023-08-08 10:25 | PCM.SS ---
Provider Provider: FRANCY GRIMES, [facility] Admission Date Admission Date: 08/07/23 Discharge Date Discharge Date: 08/08/23 Primary Care Physician Primary Care Physician: MARTY CHE PA-C Chief Complaint Reason For Visit: GASTROPARESIS History of Present Illness History of Present Illness: 58 year old female presented to the ER with nausea and abdominal distention. She has pmh gastroparesis and has required gastric decompression multiple times in the past. Has a GI but has not seen in quite some time. NG tube was placed in the ER to assist with release of gas. She has been passing gas and no output noted from NG tube. She has been NPO overnight. NG was removed this am and attempted clear liquids. She is tolerating the clear liquid diet well. Patient has no concerns or questions at this time. The only complaint she had was the NG tube to be removed and would like to go home. She denies nausea, vomiting, or pain at this time. [facility] Medical History Abdominal distention R14.0 - Abdominal distension (gaseous) (ICD-10) Abscess L02.91 - Cutaneous abscess, unspecified (ICD-10) Acute upper respiratory infection J06.9 - Acute upper respiratory infection, unspecified (ICD-10) BMI 50.0-59.9, adult Z68.43 - Body mass index [BMI] 50.0-59.9, adult (ICD-10) Change in bowel habit R19.4 - Change in bowel habit (ICD-10) Chest pain R07.9 - Chest pain, unspecified (ICD-10) COVID U07.1 - COVID-19 (ICD-10) Daytime somnolence R40.0 - Somnolence (ICD-10) Diabetes mellitus, insulin dependent (IDDM), uncontrolled Epigastric abdominal tenderness R10.816 - Epigastric abdominal tenderness (ICD-10) Fall W19.XXXA - Unspecified fall, initial encounter (ICD-10) Fatigue R53.83 - Other fatigue (ICD-10) Hypocalcemia E83.51 - Hypocalcemia (ICD-10) Kidney problem N28.9 - Disorder of kidney and ureter, unspecified (ICD-10) Lesion of skin of cheek L98.9 - Disorder of the skin and subcutaneous tissue, unspecified (ICD-10) Leukocytosis D72.829 - Elevated white blood cell count, unspecified (ICD-10) Nausea R11.0 - Nausea (ICD-10) Neck pain M54.2 - CERVICALGIA (ICD-10) Need for vaccination Z23 - Encounter for immunization (ICD-10) Needs flu shot Z23 - Encounter for immunization (ICD-10) Non-insulin dependent type 2 diabetes mellitus E11.9 - Type 2 diabetes mellitus without complications (ICD-10) Numbness and tingling R20.2 - PARESTHESIA OF SKIN (ICD-10) Pain, dental K08.89 - Other specified disorders of teeth and supporting structures (ICD- 10) Palpitations R00.2 - Palpitations (ICD-10) Pancreatitis K85.90 - Acute pancreatitis without necrosis or infection, unspecified (ICD- 10) Paranoia F22 - Delusional disorders (ICD-10) RUQ abdominal tenderness R10.811 - Right upper quadrant abdominal tenderness (ICD-10) Schizo-affective schizophrenia F25.0 - Schizoaffective disorder, bipolar type (ICD-10) Shoulder pain M25.519 - PAIN IN UNSPECIFIED SHOULDER (ICD-10) Throat pain R07.0 - Pain in throat (ICD-10) Thyroid dysfunction E07.9 - Disorder of thyroid, unspecified (ICD-10) Ulcer of abdomen wall L98.499 - Non-pressure chronic ulcer of skin of other sites with unspecified severity (ICD-10) Upper abdominal pain R10.10 - Upper abdominal pain, unspecified (ICD-10) Surgical History Back surgery Cystectomy History of oophorectomy Status post cholecystectomy Z90.49 - Acquired absence of other specified parts of digestive tract (ICD- 10) Status post hernia repair Z98.890 - Other specified postprocedural states (ICD-10) Status post hysterectomy Z90.710 - Acquired absence of both cervix and uterus (ICD-10) Family History Mother Cardiac disease Schizophrenia Alcoholism BROTHER Cancer FATHER Alcoholism Social History Smoking and tobacco status: Former smoker Alcohol intake: never Substance use type: does not use Liz/presybeterian: RASTAFARI Special liz needs: No Agree to transfusion: Yes Adopted: No Caregiver/support person: No Foster care: No Household members: caregiver Housing: apartment Marital status: S SINGLE Lives independently: No Daycare: no daycare Number of children: 1 Number of grandchildren: 0 Highest education level completed: high school graduate Financial difficulty paying for basics: not very hard service: No Current occupational status: disabled Current occupational exposures/hazards: No Previous occupational history: worked with developmentally disabled adults Pets and animals: Yes (dog ) Leisure activites: other History of recent travel: No Sexually active: No Do you think of yourself as: straight/heterosexual Current gender identity: female Seatbelt use: always Helmet use: No Drives intoxicated or rides with intoxicated tour bus driver/guide: No Water heater temperature set < 120 degrees: Yes Working smoke detector in home: No Fire extinguisher in home: No Carbon monoxide detector in home: No Firearms in home: No Medications Mecications: Medications at Discharge (Home Meds & RX) hydrocodone 7.5 mg-acetaminophen 325 mg tablet (Ellsworth) 1 tab PO Q8H PRN Pain 01/07/20 blood-glucose meter (TRAKLOKuch Ultra2 Meter kit) #1 ea 03/13/21 albuterol sulfate 90 mcg/actuation aerosol inhaler (ProAir HFA) 2 puff inhalation 3-4XD PRN Shortness Of Breath Or Wheezing #18 grams 08/16/21 lancets 33 gauge (OneTouch Delica Lancets) #100 ea 05/16/22 blood sugar diagnostic #300 ea 06/14/22 pen needle, diabetic 32 gauge x 5/32" (BD Ultra-Fine Griselda Pen Needle) #100 ea 08/08/22 pen needle, diabetic 32 gauge x 5/32" (BD Ultra-Fine Griselda Pen Needle) #100 ea 08/08/22 insulin lispro 100 unit/mL subcutaneous pen (Humalog KwikPen (U-100) Insulin) 16 unit (0.16 mL) subcut TID #15 mL 09/18/22 albuterol sulfate 2.5 mg/3 mL (0.083 %) solution for nebulization 2.5 mg (3 mL) inhalation Q4-6H PRN shortness of breath or wheezing #90 mL 11/05/22 estradiol 0.01% (0.1 mg/gram) vaginal cream 1 g vaginal DAILY #42.5 grams 12/10/22 atorvastatin 40 mg tablet 40 mg PO QDAY #90 tabs 02/05/23 memantine 10 mg tablet 10 mg PO BID #60 tabs 03/04/23 insulin glargine 100 unit/mL (3 mL) subcutaneous pen (Lantus Solostar U-100 Insulin) See Rx Instructions .Route .COMPLEX #45 mL 03/12/23 pen needle, diabetic 32 gauge x 5/32" (TRUEplus Pen Needle) #100 ea 04/03/23 quetiapine 300 mg tablet,extended release 24 hr (Seroquel XR) 600 mg PO QHS #60 tabs 04/14/23 empagliflozin 10 mg tablet (Jardiance) See Rx Instructions .Route .COMPLEX #30 tabs 06/04/23 levothyroxine 125 mcg tablet See Rx Instructions .Route .COMPLEX #180 tabs 06/04/23 montelukast 10 mg tablet See Rx Instructions .Route .COMPLEX #30 tabs 06/04/23 gabapentin 800 mg tablet 900 mg PO QID 06/05/23 sitagliptin phosphate 100 mg tablet (Januvia) 100 mg PO QDAY #90 tabs 06/18/23 lisinopril 2.5 mg tablet 2.5 mg PO QDAY #90 tabs 06/19/23 pantoprazole 40 mg tablet,delayed release (Protonix) 40 mg PO QDAY #90 tabs 06/19/23 sertraline 100 mg tablet 100 mg PO QDAY #30 tabs 07/01/23 mupirocin 2 % topical ointment 1 applic topical TID #22 grams 07/07/23 triamcinolone acetonide 0.1 % topical cream 1 applic topical TID #80 grams 07/07/23 nystatin 100,000 unit/gram topical cream 1,500,000 unit topical QID PRN 10 days #15 grams 08/06/23 Allergies Allergies Allergy/AdvReac Type Severity Reaction Status Date / Time levofloxacin [From Levaquin] AdvReac Unknown Verified 08/07/23 16:36 Penicillins AdvReac throat and Verified 08/07/23 16:36 tongue swell Review of Systems Constitutional: Reports No symptoms Head: Reports Normocephalic Eyes: Reports No symptoms Ears: Reports No symptoms Nose: Reports No symptoms Mouth: Reports No symptoms Throat: Reports No symptoms Cardiovascular: Reports No symptoms Respiratory: Reports No symptoms Gastrointestinal: Reports No symptoms Genitourinary: Reports No Symptoms Endocrine: Reports No symptoms Hematology: Reports No symptoms Immunology: Reports No symptoms Neurological: Reports No symptoms Psychiatric: Reports No symptoms Physical Examination Appearance: Positive Well-appearing, Well-nourished, No Apparent Distress and Alert and Oriented x3 Head: Positive Normocephalic Eyes: Positive IBRAHIMA ENT: Positive Ears Normal, Nares Normal and Oropharynx Normal Neck: Positive Supple, Non-Tender, No Masses, No Lynphadenopathy, No Thyroidmegaly and Trachea Midline Heart: Positive RRR and No Murmurs Respiratory: Positive Airway patent, Breath Sounds Clear, Bilaterally, Breath Sounds Equal and Respirations Nonlabored GI/: Positive Soft, Nontender, Bowel sounds normal and No Distention Neurological: Positive Recent Memory Intact, Motor Intact, Reflexes Intact, Alert and Oriented Psychiatric: Positive Normal Judgement, Normal Insight, Affect Appropriate and Mood Appropriate Vital Signs (Last 4 Hours) Vital Signs Last 4 Hours: Vital Signs: Last 4 Hours 08/08/23 07:00 08/08/23 08:00 08/08/23 10:00 Temperature 98.2 F Temperature Source Oral Pulse Rate 84 Respiratory Rate 20 Blood Pressure 112/78 Blood Pressure Mean 89 Blood Pressure Location Right Arm Blood Pressure Position Sitting O2 Sat by Pulse Oximetry 94 L Oxygen Delivery Method Room Air Room Air Telemetry Type Remote Telemetry Telemetry Monitoring Continues Telemetry Heart Rate 84 EKG MN Interval 0.22 H EKG QRS Interval 0.07 Telemetry Strip Reading SR with AVB Labs This Visit Labs This Visit: Labs This Visit 08/07/23 08/07/23 08/07/23 20:56 23:20 23:29 WBC 13.08 H RBC 5.08 Hgb 12.6 Hct 43.0 MCV 84.6 MCH 24.8 L MCHC 29.3 L RDW Coeff of Luzma 15.6 H Plt Count 290 Immature Gran % (Auto) 0.4 Neut % (Auto) 72.8 Lymph % (Auto) 15.2 [place] % (Auto) 6.7 Eos % (Auto) 4.2 Baso % (Auto) 0.7 Neut # (Auto) 9.5 H Lymph # (Auto) 2.0 [place] # (Auto) 0.9 Eos # (Auto) 0.6 Baso # (Auto) 0.1 Immature Gran # (Auto) 0.1 Sodium 139.4 Potassium 3.97 Chloride 99.6 Carbon Dioxide 29.7 Anion Gap 14.07 BUN 8.5 Creatinine 0.83 Estimated GFR (MDRD) 71.00 BUN/Creatinine Ratio 10.24 Glucose 145.7 H Calcium 8.98 Magnesium 2.15 Total Bilirubin 0.55 AST 40.9 H ALT 38.5 H Alkaline Phosphatase 111.7 Total Protein 8.30 H Albumin 4.30 Globulin 4.00 Albumin/Globulin Ratio 1.07 Amylase 48.1 Lipase 174.1 135.6 SARS CoV-2 RNA Rapid RANDY Negative 08/08/23 05:50 WBC 12.42 H RBC 4.90 Hgb 12.3 Hct 40.8 MCV 83.3 MCH 25.1 L MCHC 30.1 L RDW Coeff of Luzma 15.5 H Plt Count 272 Immature Gran % (Auto) 0.6 Neut % (Auto) 70.3 Lymph % (Auto) 18.1 [place] % (Auto) 6.4 Eos % (Auto) 4.0 Baso % (Auto) 0.6 Neut # (Auto) 8.7 H Lymph # (Auto) 2.3 [place] # (Auto) 0.8 Eos # (Auto) 0.5 Baso # (Auto) 0.1 Immature Gran # (Auto) 0.1 Sodium 137.8 Potassium 4.01 Chloride 100.8 Carbon Dioxide 29.8 Anion Gap 11.21 BUN 7.3 Creatinine 0.73 Estimated GFR (MDRD) 82.00 BUN/Creatinine Ratio 10.00 Glucose 145.5 H Calcium 8.66 Magnesium Total Bilirubin 0.58 AST 32.9 ALT 34.6 Alkaline Phosphatase 103.9 Total Protein 7.67 Albumin 3.83 Globulin 3.84 Albumin/Globulin Ratio 0.99 Amylase Lipase SARS CoV-2 RNA Rapid RANDY Review Review Statement: I have independently reviewed and interpreted the labs/EKGs/imaging that were ordered by the ER provider. I have reviewed all outside records that are availa ble currently in our EMR including imaging/notes/labs from previous visits. Plan Reccomendations/Plan: Plan: 1. Gastroparesis - NPO overnight, D5 0.45NS + 20 mEq KCL @ 125mL/hr infused, reglan Q6H; discontinue NG tube this am and start clears, appointment with Dr. Hannon on 08/18 2. Diabetes Type 2 - chronic, continue at home meds 3. Hypertension - chronic, continue at home meds 4. GERD - chronic, continue at home meds Additional Planning: Case discussed with ED Physician, Dr. Molina. DVT Prophylaxis: Ambulation Disposition: Admit to: Med/Surg Observation Full code Discussed Plan of Care with Dr. Cecil Rachel. If patient discharged with Left Ventricular Systolic Dysfunction:NA Discharged with a beta jason? [] If no, why not? [] Discharged with an curtis/arb? [] If no, why not? [] Clear liquid diet - advance as tolerated Activity as tolerated Reglan daily x 7 days Zofran prescribed as needed YOU HAVE AN APPOINTMENT WITH MARTY CHE AT THE [facility] ON AT 10:45AM. SHOULD YOU HAVE ANY QUESTIONS OR NEED TO RESCHEDULE YOU CAN CONTACT THEIR OFFICE AT [phone]. YOU HAVE A HOSPITAL FOLLOW UP WITH YOUR GI SPECIALIST, DR. HANNON, AT [facility] ON AT 1:15PM. SHOULD YOU HAVE ANY QUESTIONS OR NEED TO RESCHEDULE YOU CAN CONTACT THEIR OFFICE AT [phone]. Review With Patient Reviewed with Patient and Family: Patient and family have been counseled on condition and care plan and have no immediate questions. I have personally discussed and reviewed the patient's visit/current labs/imaging/decision making with Dr. Santos Rachel, my supervising attending. Total number of minutes spent with patient 85 min. More than 50% of the time spent with this patient was devoted to counseling and coordination of care. Time of Admission:08/07/23 23:05 Time of Discharge: 08/08/23 12:20 Discharge Plan Discharge Discharge Orders: Discharge Patient (ONCE); Ordered 08/08/23 Ordered By: DELORIS VARGAS Activity Restrictions/Additional Instructions: Clear liquid diet - advance as tolerated Activity as tolerated Reglan daily x 7 days Zofran prescribed as needed YOU HAVE AN APPOINTMENT WITH MARTY CHE AT THE [facility] ON AT 10:45AM. SHOULD YOU HAVE ANY QUESTIONS OR NEED TO RESCHEDULE YOU CAN CONTACT THEIR OFFICE AT [phone]. YOU HAVE A HOSPITAL FOLLOW UP WITH YOUR GI SPECIALIST, DR. HANNON, AT [facility] ON AT 1:15PM. SHOULD YOU HAVE ANY QUESTIONS OR NEED TO RESCHEDULE YOU CAN CONTACT THEIR OFFICE AT [phone]. Instructions: Diabetic Gastroparesis (GEN) Patient Disposition: HOME SELF-CARE Prescriptions: New ondansetron 4 mg tablet,disintegrating 4 mg PO Q6H PRN (Reason: nausea and vomiting) Qty: 20 0RF metoclopramide HCl 5 mg tablet 5 mg PO DAILY Qty: 7 0RF Continued (DME) blood-glucose meter [Impactia Ultra2 Meter] Kit See Rx Instructions .ROUTE .MEDSUPPLY Qty: 1 0RF Rx Instructions: qachs albuterol sulfate [ProAir HFA] 90 mcg/actuation HFA aerosol inhaler 2 puff inhalation 3-4XD PRN (Reason: Shortness Of Breath Or Wheezing) Qty: 18 12RF (DME) lancets [OneTouch Delica Lancets] 33 gauge misc See Rx Instructions .ROUTE .MEDSUPPLY Qty: 100 1RF Rx Instructions: As directed QACHS (DME) blood sugar diagnostic Strip See Rx Instructions .ROUTE .MEDSUPPLY Qty: 300 5RF Rx Instructions: qachs estradiol 0.01 % (0.1 mg/gram) cream 1 g VAGINAL DAILY Qty: 42.5 1RF insulin glargine [Lantus Solostar U-100 Insulin] 100 unit/mL (3 mL) insulin pen See Rx Instructions .ROUTE .COMPLEX Qty: 45 0RF Dose Instruction: INJECT 145 UNITS UNDER THE SKIN EVERY MORNING AND 55 UNITS EVERY EVENING Rx Instructions: INJECT 145 UNITS UNDER THE SKIN EVERY MORNING AND 55 UNITS EVERY EVENING (DME) pen needle, diabetic [TRUEplus Pen Needle] 32 gauge x 5/32" needle See Rx Instructions .ROUTE .COMPLEX Qty: 100 0RF Dose Instruction: USE THREE TIMES DAILY Rx Instructions: USE THREE TIMES DAILY Jardiance 10 mg tablet See Rx Instructions .ROUTE .COMPLEX Qty: 30 0RF Dose Instruction: TAKE 1 TABLET BY MOUTH EVERY MORNING Rx Instructions: TAKE 1 TABLET BY MOUTH EVERY MORNING levothyroxine 125 mcg tablet See Rx Instructions .ROUTE .COMPLEX Qty: 180 0RF Dose Instruction: TAKE 2 TABLETS BY MOUTH DAILY Rx Instructions: TAKE 2 TABLETS BY MOUTH DAILY montelukast 10 mg tablet See Rx Instructions .ROUTE .COMPLEX Qty: 30 5RF Dose Instruction: TAKE 1 TABLET BY MOUTH EVERY DAY Rx Instructions: TAKE 1 TABLET BY MOUTH EVERY DAY Januvia 100 mg tablet 100 mg PO QDAY Qty: 90 1RF lisinopril 2.5 mg tablet 2.5 mg PO QDAY Qty: 90 1RF pantoprazole [Protonix] 40 mg tablet,delayed release (DR/EC) 40 mg PO QDAY Qty: 90 1RF nystatin 100,000 unit/gram cream 1,500,000 unit topical QID PRN 10 Days Qty: 15 5RF Rx Instructions: Apply to diaper area 4x daily until gone then another 48 hours. hydrocodone-acetaminophen [Ellsworth] 7.5-325 mg tablet 1 tab PO Q8H PRN (Reason: Pain) gabapentin 800 mg tablet 900 mg PO QID (DME) pen needle, diabetic [BD Ultra-Fine Griselda Pen Needle] 32 gauge x 5/32" needle See Rx Instructions .ROUTE .MEDSUPPLY Qty: 100 3RF Rx Instructions: TID with meals as well as qam and qpm (DME) pen needle, diabetic [BD Ultra-Fine Griselda Pen Needle] 32 gauge x 5/32" needle See Rx Instructions .ROUTE .MEDSUPPLY Qty: 100 3RF Rx Instructions: TID with meals and qam and qpm atorvastatin 40 mg tablet 40 mg PO QDAY Qty: 90 1RF mupirocin 2 % ointment 1 applic topical TID Qty: 22 0RF triamcinolone acetonide 0.1 % cream 1 applic topical TID Qty: 80 0RF sertraline 100 mg tablet 100 mg PO QDAY Qty: 30 1RF insulin lispro [Humalog KwikPen Insulin] 100 unit/mL insulin pen 16 unit subcut TID Qty: 15 3RF Rx Instructions: 16 units with meals. SLIDING SCALE with correction of up to 4 additional units TID. Max dose 60units albuterol sulfate 2.5 mg /3 mL (0.083 %) solution for nebulization 2.5 mg inhalation Q4-6H PRN (Reason: shortness of breath or wheezing) Qty: 90 0RF memantine 10 mg tablet 10 mg PO BID Qty: 60 1RF quetiapine [Seroquel XR] 300 mg tablet extended release 24 hr 600 mg PO QHS Qty: 60 1RF Did you review [place] [employer] for ALL controlled substances?: No Discussed opioids are addictive and Narcan is available by prescription or from pharmacy.: No Condition: Fair
== END 2023-08-08 12:45 | disposition home or self-care (01) ==
LOC: ED 16:10 → MEDSURG B 16:10
PROVIDERS: ADMIT Hospitalist; ATTEND Nurse Practitioner Family